=== PATIENT | male | born 1960 | race Caucasian/White ===

== ENCOUNTER 2024-05-14 01:44 | Inpatient (IN) | payer OTHER, MEDICAID ==
[2024-05-14] VITALS (12 sets, daily range): BP systolic 98–115; BP diastolic 72–79; PULSE 78–129; RESP 14–30; TEMP 97.7–97.8
[~2024-05-14] VITALS: Ht 172.7 cm; Wt 62.6 kg
[2024-05-14 02:53] LABS: HEMATOCRIT. 31.3 % (42.0-52.0); HEMOGLOBIN. 10.2 g/dL (14.0-18.0); MEAN CORPUSCULAR HEMOGLOBIN 28.4 pg (28.0-32.0); MEAN CORPUSCULAR HGB CONC 32.7 g/dL (31.0-37.0); MEAN CORPUSCULAR VOLUME 87.1 fL (80.0-94.0); PLATELET 419 x1000/uL (130-400); RED BLOOD CELL COUNT 3.59 mill/uL (4.7-6.1); WHITE BLOOD COUNT 27.6 x1000/uL (4.5-11.0)
[2024-05-14 02:54] LABS: DIFFERENTIAL COMMENT 1
[2024-05-14 02:59] LABS: CHLORIDE 95 mEq/L (98-107); POTASSIUM 4.6 mEq/L (3.5-5.1); SODIUM 136 mEq/L (136-145)
[2024-05-14 03:00] LABS: CALCIUM 10.3 mg/dL (8.7-10.4); CARBON DIOXIDE 35 mEq/L (21-32)
[2024-05-14 03:05] LABS: CREATININE 1.5 mg/dL (0.6-1.3); GLUCOSE 211 mg/dL (70-105)
[2024-05-14 03:06] LABS: TROPONIN I HIGH SENSITIVITY 4 ng/L (3.0-53); UREA NITROGEN BLOOD 40 mg/dL (9-23)
[2024-05-14 03:07] LABS: ALANINE AMINOTRANSFERASE 44 IU/L (10-49); ALBUMIN 4.6 g/dL (3.2-4.8); ASPARTATE AMINOTRANSFERASE 28 IU/L (<34); BILIRUBIN DIRECT 0.2 mg/dL (<=3.0); BILIRUBIN TOTAL 0.5 mg/dL (0.1-1.0); PROTEIN TOTAL 8.2 g/dL (6.0-8.3)
[2024-05-14 03:28] LABS: PLATELET ESTIMATE INCREASED
[2024-05-14 03:42] LABS: ETHANOL BLOOD < 10 mg/dL (<10)
[2024-05-14 04:02] LABS: PROTHROMBIN TIME 10.7 sec (9.6-11.0)
[2024-05-14] MEDS: SODIUM CHLORIDE 0.9% 500 ML IV NR (04:28)
[2024-05-14] MEDS: PIPERACILLIN/TAZO 3.375G/50ML 50 ML IV NR (04:29)
[2024-05-14] MEDS: VANCOMYCIN 1G PREMIX 200 ML IV NR (05:12)
[2024-05-14] MEDS: PANTOPRAZOLE SODIUM 40 MG/VIAL IV ONE (05:13)
[2024-05-14] MEDS: ACETAMINOPHEN 1000MG/100ML 100 ML IV ONE (05:32)
[2024-05-14] MEDS ORDERED: ONDANSETRON HCL 4MG/2ML INJ IV PRN (20:00)
[2024-05-14] MEDS ORDERED: ENOXAPARIN 40MG/0.4ML SYR SUBCUT SCH (20:00)
[2024-05-14] MEDS ORDERED: DEXTROSE 50% WATER 50ML SYRINGE IV PRN (22:15)
[2024-05-14] MEDS: SODIUM CHLORIDE 0.9% 1,000 ML IV SCH (22:21)
[2024-05-14] MEDS: VANCOMYCIN 750MG/150ML (BAXTER) IV SCH (22:21)
[2024-05-14] MEDS: PIPERACILLIN/TAZO 3.375G/50ML 50 ML IV SCH (22:21)
[2024-05-14] MEDS: PANTOPRAZOLE SODIUM 40 MG/VIAL IV SCH (22:21)
[2024-05-15] VITALS (19 sets, daily range): BP systolic 106–151; BP diastolic 71–99; PULSE 99–121; RESP 14–17; TEMP 97.4–101.4
[2024-05-15 00:38] LABS: CREATINE KINASE MB FRACTION 0.6 ng/mL (0.5-3.6)
[2024-05-15 06:35] LABS: HEMATOCRIT. 25.5 % (42.0-52.0); HEMOGLOBIN. 8.3 g/dL (14.0-18.0); MEAN CORPUSCULAR HEMOGLOBIN 28.4 pg (28.0-32.0); MEAN CORPUSCULAR HGB CONC 32.5 g/dL (31.0-37.0); MEAN CORPUSCULAR VOLUME 87.4 fL (80.0-94.0); MEAN PLATELET VOLUME 8.7 fl (7.4-10.4); PLATELET 371 x1000/uL (130-400); RED BLOOD CELL COUNT 2.92 mill/uL (4.7-6.1); RED CELL DISTRIBUTION WIDTH 16.7 % (11.6-14.6); WHITE BLOOD COUNT 33.3 x1000/uL (4.5-11.0)
[2024-05-15 06:58] LABS: POTASSIUM 4.8 mEq/L (3.5-5.1)
[2024-05-15 06:59] LABS: CALCIUM 9.2 mg/dL (8.7-10.4)
[2024-05-15 07:04] LABS: CREATININE 3.5 mg/dL (0.6-1.3)
[2024-05-15 07:18] LABS: CREATINE KINASE MB FRACTION 0.6 ng/mL (0.5-3.6)
[2024-05-15 07:26] LABS: DIFFERENTIAL COMMENT 1
[2024-05-15] MEDS: BLOOD SUGAR DIAGNOSTIC STRIP TEST SCH (07:30)
[2024-05-15] MEDS: INSULIN LISPRO 100 UNITS/ML SUBCUT SCH (08:00)
[2024-05-15 09:04] LABS: BG BASE EXCESS 0.9 mmol/L (-2.0-2.0); BG CARBOXYHEMOGLOBIN 0.3 % (0.5-1.5); BG DEOXYHEMOGLOBIN 0.9 % (0.0-5.0); BG FRACTION INSPIRED OXYGEN 36; BG METHEMOGLOBIN 0.1 % (0.0-1.5); BG OXYGEN SATURATION 99.1 % (92.0-98.5); BG OXYHEMOGLOBIN 98.7 % (94.0-97.0); BG PCO2 32.7 mmHg (35.0-45.0); BG PH 7.484 (7.350-7.450); BG PO2 136.2 mmHg (75.0-100.0); BG SAMPLE SITE RIGHT RADIAL; BG TOTAL HEMOGLOBIN 9.2 g/dL (12.0-18.0)
[2024-05-15] MEDS: RISPERIDONE 0.5MG TABLET PO SCH (09:41)
[2024-05-15] MEDS: ACETAMINOPHEN 325MG TABLET PO PRN (09:41)
[2024-05-15 10:55] LABS: ANISOCYTOSIS 1+; PLATELET ESTIMATE NORMAL
[2024-05-16] VITALS (23 sets, daily range): BP systolic 101–153; BP diastolic 66–118; PULSE 75–123; RESP 13–27; TEMP 97.6–101.2
[2024-05-16 06:52] LABS: POTASSIUM 4.5 mEq/L (3.5-5.1)
[2024-05-16 06:53] LABS: CALCIUM 8.4 mg/dL (8.7-10.4)
[2024-05-16 06:54] LABS: HEMOGLOBIN. 7.2 g/dL (14.0-18.0); MEAN CORPUSCULAR HGB CONC 32.9 g/dL (31.0-37.0); MEAN CORPUSCULAR VOLUME 88.2 fL (80.0-94.0); MEAN PLATELET VOLUME 8.5 fl (7.4-10.4); PLATELET 297 x1000/uL (130-400); RED BLOOD CELL COUNT 2.49 mill/uL (4.7-6.1); WHITE BLOOD COUNT 25.6 x1000/uL (4.5-11.0)
[2024-05-16 07:31] LABS: DIFFERENTIAL COMMENT 1
[2024-05-16 08:13] LABS: CREATININE 5.1 mg/dL (0.6-1.3)
[2024-05-16 08:30] LABS: CLARITY URINE TURBID (CLEAR); COLOR URINE ORANGE (YELLOW); GLUCOSE URINE NEGATIVE (NEGATIVE); KETONES URINE NEGATIVE (NEGATIVE); LEUKOCYTE ESTERASE URINE 3+ (NEGATIVE); NITRITE URINE NEGATIVE (NEGATIVE); OCCULT BLOOD URINE 3+ (NEGATIVE); PH URINE 8.5 (4.5-8.0); PROTEIN URINE 3+ (NEGATIVE); SPECIFIC GRAVITY URINE 1.015 (1.005-1.030); UROBILINOGEN URINE 0.2 E.U./dL (0.2-1.0)
[2024-05-16 09:26] LABS: AMORPHOUS SEDIMENT URINE 2+ /lpf; BACTERIA URINE 1+; SQUAMOUS EPITHELIAL CELL URINE RARE /lpf (RARE/1+); TRIPLE PHOSPHATE CRYSTAL URINE 1+ /lpf; YEAST URINE NONE SEEN
[2024-05-16 11:33] LABS: CREATINE KINASE < 15 IU/L (46-171)
[2024-05-16 15:00] LABS: ANISOCYTOSIS 1+; PLATELET ESTIMATE NORMAL
[2024-05-16] MEDS: PIPERACILLIN/TAZO 3.375G/50ML 50 ML IV SCH (18:15)
[2024-05-16] MEDS: PANTOPRAZOLE SODIUM 40 MG/VIAL IV SCH (21:52)
[2024-05-16] MEDS: SUCRALFATE 1G TABLET GT SCH (21:53)
[2024-05-16] MEDS: MEROPENEM 1G/100ML 100 ML IV SCH (23:18)
[2024-05-17] VITALS (29 sets, daily range): BP systolic 118–165; BP diastolic 72–98; PULSE 72–108; RESP 14–25; TEMP 98.7–100.1
[2024-05-17 05:28] LABS: CARBON DIOXIDE 23 mEq/L (21-32); CHLORIDE 112 mEq/L (98-107); POTASSIUM 3.6 mEq/L (3.5-5.1)
[2024-05-17 05:29] LABS: CALCIUM 8.3 mg/dL (8.7-10.4)
[2024-05-17 05:33] LABS: GLUCOSE 86 mg/dL (70-105); IRON 31 ug/dL (65-175)
[2024-05-17 05:34] LABS: UREA NITROGEN BLOOD 63 mg/dL (9-23)
[2024-05-17 05:35] LABS: PHOSPHORUS 3.2 mg/dL (2.5-4.9)
[2024-05-17 05:36] LABS: TOTAL IRON BINDING CAPACITY 325 ug/dl (250-425)
[2024-05-17 05:38] LABS: SODIUM 145 mEq/L (136-145)
[2024-05-17 05:39] LABS: CREATININE 2.5 mg/dL (0.6-1.3)
[2024-05-17 05:47] LABS: FOLIC ACID (FOLATE) SERUM 12.86 ng/mL (>5.38)
[2024-05-17 05:48] LABS: FERRITIN 276 ng/mL (22-322); VITAMIN B12 SERUM 579 pg/mL (211-911)
[2024-05-17] MEDS: BLOOD SUGAR DIAGNOSTIC STRIP TEST SCH (06:00)
[2024-05-17] MEDS: INSULIN LISPRO 100 UNITS/ML SUBCUT SCH (06:00)
[2024-05-17 06:36] LABS: BASOPHILS % 0.7 % (0.0-2.0); DIFFERENTIAL COMMENT 0; EOSINOPHILS % 2.8 % (0.0-5.0); MEAN CORPUSCULAR HEMOGLOBIN 29.1 pg (28.0-32.0); MEAN CORPUSCULAR VOLUME 88.3 fL (80.0-94.0); MEAN PLATELET VOLUME 8.4 fl (7.4-10.4); MONOCYTES % 8.9 % (2.0-8.0); NEUTROPHILS % 74.6 % (40.0-76.0); PLATELET 291 x1000/uL (130-400); RED BLOOD CELL COUNT 2.11 mill/uL (4.7-6.1); RED CELL DISTRIBUTION WIDTH 16.4 % (11.6-14.6)
[2024-05-17 06:45] LABS: HEMOGLOBIN. 6.1 g/dL (14.0-18.0)
[2024-05-17 06:46] LABS: HEMATOCRIT. 18.6 % (42.0-52.0)
[2024-05-17] MEDS: SODIUM CHLORIDE 0.45% 1,000 ML IV SCH (10:34)
[2024-05-17] MEDS: ASCORBIC ACID 500 MG TABLET GT SCH (17:50)
[2024-05-17] MEDS: MEROPENEM 500MG/50ML IV SCH (17:50)
[2024-05-17] MEDS: FERROUS SULFATE 300MG/5ML UDC GT SCH (17:50)
[2024-05-17 21:46] LABS: HEMATOCRIT 21.9 % (42.0-52.0); HEMOGLOBIN 7.3 g/dL (14.0-18.0)
[2024-05-17] MEDS: DEXT 5%/0.45% NACL 1000ML 1,000 ML IV SCH (23:33)
[2024-05-18] VITALS (23 sets, daily range): BP systolic 135–180; BP diastolic 75–124; PULSE 65–100; RESP 14–25; TEMP 97.5–99.5
[2024-05-18 05:26] LABS: CHLORIDE 113 mEq/L (98-107); POTASSIUM 3.4 mEq/L (3.5-5.1); SODIUM 146 mEq/L (136-145)
[2024-05-18 05:27] LABS: CALCIUM 8.3 mg/dL (8.7-10.4); CARBON DIOXIDE 23 mEq/L (21-32)
[2024-05-18 05:31] LABS: BASOPHILS % 1.1 % (0.0-2.0); EOSINOPHILS % 2.3 % (0.0-5.0); HEMATOCRIT. 22.6 % (42.0-52.0); HEMOGLOBIN. 7.5 g/dL (14.0-18.0); INR 1.2; LYMPHOCYTES % 19.4 % (20.0-50.0); MEAN CORPUSCULAR HEMOGLOBIN 29.6 pg (28.0-32.0); MEAN CORPUSCULAR HGB CONC 33.4 g/dL (31.0-37.0); MEAN CORPUSCULAR VOLUME 88.8 fL (80.0-94.0); MEAN PLATELET VOLUME 8.1 fl (7.4-10.4); MONOCYTES % 11.1 % (2.0-8.0); NEUTROPHILS % 66.1 % (40.0-76.0); PLATELET 319 x1000/uL (130-400); PROTHROMBIN TIME 13.1 sec (9.6-11.0); RED BLOOD CELL COUNT 2.54 mill/uL (4.7-6.1); RED CELL DISTRIBUTION WIDTH 16.1 % (11.6-14.6)
[2024-05-18 05:32] LABS: GLUCOSE 110 mg/dL (70-105); UREA NITROGEN BLOOD 37 mg/dL (9-23)
[2024-05-18 05:34] LABS: PHOSPHORUS 2.7 mg/dL (2.5-4.9)
[2024-05-18 05:36] LABS: CREATININE 1.3 mg/dL (0.6-1.3)
[2024-05-18] MEDS: POTASSIUM CHLORIDE 20MEQ/PACKET PO NR (09:13)
[2024-05-18] MEDS: LORAZEPAM 1MG TABLET PO PRN (10:46)
[2024-05-18] MEDS: KCL 20MEQ/100ML PREMIX 100 ML IV SCH (14:06)
[2024-05-18] MEDS: MEROPENEM 1G/100ML IV SCH (18:42)
[2024-05-18] MEDS: HYDRALAZINE 20MG/ML VIAL IV PRN (23:23)
[2024-05-19] VITALS (22 sets, daily range): BP systolic 142–185; BP diastolic 77–114; PULSE 66–109; RESP 14–20; TEMP 97.8–99.7
[2024-05-19 05:53] LABS: CHLORIDE 113 mEq/L (98-107); POTASSIUM 3.5 mEq/L (3.5-5.1); SODIUM 146 mEq/L (136-145)
[2024-05-19 05:55] LABS: CALCIUM 8.4 mg/dL (8.7-10.4); CARBON DIOXIDE 23 mEq/L (21-32)
[2024-05-19 06:00] LABS: CREATININE 0.9 mg/dL (0.6-1.3); GLUCOSE 104 mg/dL (70-105); UREA NITROGEN BLOOD 21 mg/dL (9-23)
[2024-05-19 09:28] LABS: BASOPHILS % 0.8 % (0.0-2.0); EOSINOPHILS % 1.8 % (0.0-5.0); HEMATOCRIT. 24.8 % (42.0-52.0); HEMOGLOBIN. 8.3 g/dL (14.0-18.0); LYMPHOCYTES % 18.6 % (20.0-50.0); MEAN CORPUSCULAR HEMOGLOBIN 29.4 pg (28.0-32.0); MEAN CORPUSCULAR HGB CONC 33.4 g/dL (31.0-37.0); MEAN PLATELET VOLUME 7.5 fl (7.4-10.4); MONOCYTES % 9.8 % (2.0-8.0); PLATELET 383 x1000/uL (130-400); RED BLOOD CELL COUNT 2.82 mill/uL (4.7-6.1); RED CELL DISTRIBUTION WIDTH 16.1 % (11.6-14.6); WHITE BLOOD COUNT 10.2 x1000/uL (4.5-11.0)
[2024-05-20] VITALS (18 sets, daily range): BP systolic 122–167; BP diastolic 75–97; PULSE 71–112; RESP 14–19; TEMP 96.8–100.5
[2024-05-20 11:10] LABS: CHLORIDE 111 mEq/L (98-107); POTASSIUM 3.4 mEq/L (3.5-5.1); SODIUM 145 mEq/L (136-145)
[2024-05-20 11:11] LABS: CALCIUM 8.9 mg/dL (8.7-10.4); CARBON DIOXIDE 23 mEq/L (21-32)
[2024-05-20 11:16] LABS: CREATININE 0.9 mg/dL (0.6-1.3); GLUCOSE 109 mg/dL (70-105); UREA NITROGEN BLOOD 16 mg/dL (9-23)
[2024-05-20] MEDS ORDERED: CLONIDINE 0.1MG TABLET PO PRN (14:00)
[2024-05-20] MEDS: POTASSIUM CHLORIDE 20MEQ/PACKET GT NR (15:30)
[2024-05-20] MEDS: LORAZEPAM 2MG/ML INJ IV PRN (16:23)
[2024-05-20] MEDS: LOSARTAN 50 MG TABLET PO SCH (23:06)
[2024-05-21] VITALS (18 sets, daily range): BP systolic 97–162; BP diastolic 64–92; PULSE 69–95; RESP 13–24; TEMP 96.7–98.4
[2024-05-21 08:03] LABS: BASOPHILS % 0.9 % (0.0-2.0); EOSINOPHILS % 1.6 % (0.0-5.0); HEMATOCRIT. 24.9 % (42.0-52.0); HEMOGLOBIN. 8.2 g/dL (14.0-18.0); LYMPHOCYTES % 14.5 % (20.0-50.0); MEAN CORPUSCULAR HEMOGLOBIN 28.9 pg (28.0-32.0); MEAN CORPUSCULAR HGB CONC 32.8 g/dL (31.0-37.0); MEAN CORPUSCULAR VOLUME 87.9 fL (80.0-94.0); MEAN PLATELET VOLUME 7.5 fl (7.4-10.4); MONOCYTES % 8.9 % (2.0-8.0); NEUTROPHILS % 74.1 % (40.0-76.0); PLATELET 448 x1000/uL (130-400); RED BLOOD CELL COUNT 2.84 mill/uL (4.7-6.1); RED CELL DISTRIBUTION WIDTH 16.2 % (11.6-14.6); WHITE BLOOD COUNT 13.6 x1000/uL (4.5-11.0)
[2024-05-21 08:15] LABS: PHOSPHORUS 2.9 mg/dL (2.5-4.9)
[2024-05-21] MEDS: MEROPENEM 1G/100ML IV SCH (17:14)
[2024-05-21 23:48] LABS: BASOPHILS % 1.2 % (0.0-2.0); EOSINOPHILS % 3.3 % (0.0-5.0); HEMATOCRIT. 22.9 % (42.0-52.0); HEMOGLOBIN. 7.6 g/dL (14.0-18.0); LYMPHOCYTES % 22.8 % (20.0-50.0); MEAN CORPUSCULAR VOLUME 88.1 fL (80.0-94.0); MEAN PLATELET VOLUME 7.5 fl (7.4-10.4); NEUTROPHILS % 61.7 % (40.0-76.0); PLATELET 460 x1000/uL (130-400); WHITE BLOOD COUNT 9.6 x1000/uL (4.5-11.0)
[2024-05-21 23:53] LABS: CHLORIDE 113 mEq/L (98-107); POTASSIUM 3.2 mEq/L (3.5-5.1); SODIUM 147 mEq/L (136-145)
[2024-05-21 23:54] LABS: CALCIUM 8.5 mg/dL (8.7-10.4); CARBON DIOXIDE 25 mEq/L (21-32)
[2024-05-21 23:59] LABS: CREATININE 0.8 mg/dL (0.6-1.3); GLUCOSE 100 mg/dL (70-105); UREA NITROGEN BLOOD 18 mg/dL (9-23)
[2024-05-22] VITALS (19 sets, daily range): BP systolic 123–166; BP diastolic 75–100; PULSE 62–93; RESP 14–20; TEMP 96.9–98.8
[2024-05-22 00:01] LABS: ALANINE AMINOTRANSFERASE 20 IU/L (10-49); ALBUMIN 3.4 g/dL (3.2-4.8); ASPARTATE AMINOTRANSFERASE 13 IU/L (<34); BILIRUBIN TOTAL 0.3 mg/dL (0.1-1.0); PROTEIN TOTAL 6.4 g/dL (6.0-8.3)
[2024-05-22 07:14] LABS: BASOPHILS % 1.3 % (0.0-2.0); EOSINOPHILS % 3.3 % (0.0-5.0); HEMATOCRIT. 24.5 % (42.0-52.0); HEMOGLOBIN. 8.1 g/dL (14.0-18.0); LYMPHOCYTES % 15.8 % (20.0-50.0); MEAN CORPUSCULAR HEMOGLOBIN 29.1 pg (28.0-32.0); MEAN CORPUSCULAR VOLUME 88.4 fL (80.0-94.0); MEAN PLATELET VOLUME 7.9 fl (7.4-10.4); MONOCYTES % 9.7 % (2.0-8.0); NEUTROPHILS % 69.9 % (40.0-76.0); PLATELET 419 x1000/uL (130-400); RED BLOOD CELL COUNT 2.77 mill/uL (4.7-6.1); RED CELL DISTRIBUTION WIDTH 16.2 % (11.6-14.6); WHITE BLOOD COUNT 10.8 x1000/uL (4.5-11.0)
[2024-05-22 13:36] LABS: DIFFERENTIAL COMMENT 1; HEMATOCRIT. 24.1 % (42.0-52.0); HEMOGLOBIN. 7.9 g/dL (14.0-18.0); MEAN CORPUSCULAR HEMOGLOBIN 28.9 pg (28.0-32.0); MEAN CORPUSCULAR HGB CONC 32.6 g/dL (31.0-37.0); MEAN CORPUSCULAR VOLUME 88.6 fL (80.0-94.0); MEAN PLATELET VOLUME 7.9 fl (7.4-10.4); PLATELET 436 x1000/uL (130-400); RED BLOOD CELL COUNT 2.72 mill/uL (4.7-6.1); RED CELL DISTRIBUTION WIDTH 16.6 % (11.6-14.6); WHITE BLOOD COUNT 10.3 x1000/uL (4.5-11.0)
[2024-05-22 13:53] LABS: CHLORIDE 113 mEq/L (98-107); POTASSIUM 3.6 mEq/L (3.5-5.1); SODIUM 147 mEq/L (136-145)
[2024-05-22 13:54] LABS: CALCIUM 8.4 mg/dL (8.7-10.4); CARBON DIOXIDE 27 mEq/L (21-32)
[2024-05-22 13:59] LABS: CREATININE 0.8 mg/dL (0.6-1.3); GLUCOSE 149 mg/dL (70-105); UREA NITROGEN BLOOD 17 mg/dL (9-23)
[2024-05-22 15:52] LABS: ANISOCYTOSIS 1+; PLATELET ESTIMATE INCREASED
[2024-05-23] VITALS (15 sets, daily range): BP systolic 122–163; BP diastolic 76–107; PULSE 56–86; RESP 14–17; TEMP 97–98.3; O2SAT 98
[2024-05-23 06:50] LABS: CHLORIDE 113 mEq/L (98-107)
[2024-05-23 06:51] LABS: CARBON DIOXIDE 26 mEq/L (21-32); POTASSIUM 3.4 mEq/L (3.5-5.1); SODIUM 148 mEq/L (136-145)
[2024-05-23 06:52] LABS: CALCIUM 8.6 mg/dL (8.7-10.4)
[2024-05-23 06:56] LABS: CREATININE 0.8 mg/dL (0.6-1.3)
[2024-05-23 06:57] LABS: GLUCOSE 125 mg/dL (70-105); UREA NITROGEN BLOOD 17 mg/dL (9-23)
[2024-05-23 07:00] LABS: EOSINOPHILS % 4.1 % (0.0-5.0); HEMOGLOBIN. 7.9 g/dL (14.0-18.0); MEAN CORPUSCULAR HGB CONC 32.9 g/dL (31.0-37.0); MEAN CORPUSCULAR VOLUME 88.2 fL (80.0-94.0); MEAN PLATELET VOLUME 8.6 fl (7.4-10.4); MONOCYTES % 9.6 % (2.0-8.0); NEUTROPHILS % 67.3 % (40.0-76.0); PLATELET 459 x1000/uL (130-400); RED BLOOD CELL COUNT 2.72 mill/uL (4.7-6.1); RED CELL DISTRIBUTION WIDTH 16.2 % (11.6-14.6); WHITE BLOOD COUNT 10.1 x1000/uL (4.5-11.0)
[2024-05-23] MEDS ORDERED: POTASSIUM CHLORIDE 20MEQ TABLET SR PO NR (16:15)
== END 2024-05-23 18:24 | DRG 870 ==
LOC: ER 01:44 → 5EST 06:26 → EDBEDREQTM 06:32 → EDBEDREQ 06:32
PROVIDERS: ADMIT Internal Medicine; ATTEND Internal Medicine
PROC: 5A1955Z Respiratory Ventilation, Greater than 96 Consecutive Hours (ICD-10-PCS; principal; 2024-05-14)
PROC: 30233N1 Transfusion of Nonautologous Red Blood Cells into Peripheral Vein, Percutaneous Approach (ICD-10-PCS; 2024-05-17)
DX: A41.59 Other Gram-negative sepsis (principal); U07.1 COVID-19; N17.0 Acute kidney failure with tubular necrosis; J96.10 Chronic respiratory failure, unspecified whether with hypoxia or hypercapnia; E87.1 Hypo-osmolality and hyponatremia; K92.0 Hematemesis; Z99.11 Dependence on respirator [ventilator] status; N13.6 Pyonephrosis; M47.817 Spondylosis without myelopathy or radiculopathy, lumbosacral region; D64.9 Anemia, unspecified; F03.90 Unspecified dementia, unspecified severity, without behavioral disturbance, psychotic disturbance, mood disturbance, and anxiety; I12.9 Hypertensive chronic kidney disease with stage 1 through stage 4 chronic kidney disease, or unspecified chronic kidney disease; N18.9 Chronic kidney disease, unspecified; E11.22 Type 2 diabetes mellitus with diabetic chronic kidney disease; E78.00 Pure hypercholesterolemia, unspecified; M48.07 Spinal stenosis, lumbosacral region; M51.36 Other intervertebral disc degeneration, lumbar region; M48.061 Spinal stenosis, lumbar region without neurogenic claudication; L89.899 Pressure ulcer of other site, unspecified stage; N32.3 Diverticulum of bladder; G40.909 Epilepsy, unspecified, not intractable, without status epilepticus; N40.0 Benign prostatic hyperplasia without lower urinary tract symptoms; Z79.82 Long term (current) use of aspirin; Z93.0 Tracheostomy status; Z93.1 Gastrostomy status; Z74.01 Bed confinement status; Z79.899 Other long term (current) drug therapy
CPT/HCPCS: 36415; 36600; 71045; 72131; 72170; 74176; 76770; 80048; 80053; 80076; 80202; 80320; 81003; 82270; 82375; 82550; 82553; 82607; 82728; 82746; 82805; 82962; 83036; 83540; 83550; 83605; 83735; 84100; 84145; 84484; 85014; 85018; 85025; 85044; 86850; 86900; 86920; 87077; 87186; 87426; 94003; 99291; C1893; J0360; J1815; J2060; J2185; J2470; J2543; J3370; J3480; J7030; P9016; A4315; G0480; J0131